=== PATIENT | male | born 1985 | race Two or more races ===

== ENCOUNTER 2017-09-01 19:44 | Emergency (ER) | payer OTHER ==
[2017-09-01] MEDS ORDERED: Ketorolac 60 MG/2 ML SDV IM ONE (21:29)
[2017-09-01] MEDS ORDERED: predniSONE 20 MG Tab PO ONE (21:29)
[2017-09-01] MEDS ORDERED: Amoxicillin/Clavulanate K 875-125 MG Tab PO ONE (21:29)
--- NOTE | 2017-09-01 21:35 | EDM.PDOC ---
ED HPI GENERAL MEDICAL PROBLEM - General Chief Complaint: Headache Stated Complaint: HEADACHE Time Seen by Provider: 09/01/17 20:30 Source of Information: Reports: Patient History Limitations: Reports: No Limitations - History of Present Illness INITIAL COMMENTS - FREE TEXT/NARRATIVE: Patient is a 31-year-old male who presents to the ED complaining of right sided headache encompassing the frontal/maxillary sinuses. Patient states MURCIA was gradual onset started 3 days and has progressively gotten worse. Described as a throbbing sensation with slight photophobia present. He has no history of migraines. States over the past 2 weeks he been experiencing increasing sinus congestion runny nose and sinus pressure. States he has a history of seasonal allergies and notes that symptoms have appeared to be getting worse. He complains of pain with palpation along the frontal and maxillary sinus. Denies any dental discomfort at this point. There is no vision changes. No nausea or vomiting. No focal neurological deficits. No nuchal rigidity. States one week ago he did feel feverish that has since resolved. Denies any ear pain, sore throat, postnasal drip, cough, chest pain, rash, or any additional complaints. Currently pain is rated 6 out of 10. He's been taking Tylenol and Aleve. Last took Tylenol at 1400 hrs. today. Of note patient was involved in a accident approximately one month ago when he was bucked off a horse. This caused a compression fracture, moderate compression fracture to his L1. He is currently in the lumbar sacral base. He is prescribed Tylenol with Codeine to which he has not been taking for the past 3 weeks. During this accident he did bump his head and had CT of the head obtained with no intracranial abnormalities. There was no skull fracture present. Since the accident he has had no issues with headaches. He denies any past medical history or other medications currently taking. Surgical history none. Smoking history none. Alcohol use rarely. Denies recreational drug use. PCP known. Headache Pain Score (Numeric/FACES): 7 - Related Data Allergies Allergy/AdvReac Type Severity Reaction Status Date / Time No Known Allergies Allergy Verified 09/01/17 20:10 Home Meds: Home Meds Amoxicillin/Potassium Clav [Augmentin 875-125 Tablet] 1 each PO BID #19 tablet 09/01/17 [Rx] Terbinafine HCl [Terbinafine] 250 mg PO DAILY 09/01/17 [History] ED ROS GENERAL - Review of Systems Review Of Systems: ROS reveals no pertinent complaints other than HPI. - Physical Exam Exam: See Below Exam Limited By: No Limitations General Appearance: Alert, WD/WN, No Apparent Distress Eye Exam: Bilateral Eye: EOMI, Normal Inspection, Nystagmus (none noted), PERRL Ears: Hearing Grossly Normal Nose: Normal Inspection Throat/Mouth: Normal Inspection, Normal Teeth, Normal Oropharynx, Normal Voice, No Airway Compromise Head Exam: Facial Tenderness (On the right frontal and maxillary sinus.) Neck: Normal Inspection, Supple, Non-Tender, Full Range of Motion. No: Lymphadenopathy (L), Lymphadenopathy (R) Respiratory/Chest: No Respiratory Distress, Lungs Clear, Normal Breath Sounds, No Accessory Muscle Use, Chest Non-Tender Cardiovascular: Normal Peripheral Pulses, Regular Rate, Rhythm, No Murmur GI/Abdominal: Normal Bowel Sounds, Soft, Non-Tender, No Organomegaly Neuro Exam (Abbreviated): Alert, Oriented, CN II-XII Intact, Normal Cognition, No Motor/Sensory Deficits, Other (No facial droop, slurred speech, tongue deviation, pronator drift, and or nystagmus. No weakness discrepancies to the upper/lower extremities. Cerebellar fx intact: finger to nose, rapid alternating movements. ) Back Exam: Other (Lumbosacral brace in place) Extremities: Normal Inspection, Normal Range of Motion, Non-Tender, No Pedal Edema, Normal Capillary Refill Psychiatric: Normal Affect, Normal Mood Skin Exam: Warm, Dry, Normal Color, No Rash Course - Vital Signs Last Recorded V/S: Last Vital Signs Temp 98.0 F 09/01/17 20:11 Pulse 88 09/01/17 20:11 Resp 16 09/01/17 20:11 BP 149/106 H 09/01/17 20:11 Pulse Ox 98 09/01/17 20:11 - Orders/Labs/Meds Meds: Medications Discontinued Medications Generic Name Dose Route Start Last Admin Trade Name Freq PRN Reason Stop Dose Admin Amoxicillin/Clavulanate Potassium 1 tab 09/01/17 21:29 09/01/17 21:40 Augmentin 875 Mg/125 Mg PO 09/01/17 21:30 1 tab ONETIME ONE Administration Ketorolac Tromethamine 60 mg 09/01/17 21:29 09/01/17 21:40 Toradol IM 09/01/17 21:30 60 mg ONETIME ONE Administration Prednisone 40 mg 09/01/17 21:29 09/01/17 21:40 Prednisone PO 09/01/17 21:30 40 mg ONETIME ONE Administration - Re-Assessments/Exams Free Text/Narrative Re-Assessment/Exam: Believe patient has sinusitis with symptoms persisting for the past 2 weeks that have been progressively getting worse. He has pain noted to the frontal and maxillary sinus with palpation. He has upper respiratory-like symptoms. I have opted to treat the patient with Toradol 60 mg IM, prednisone 40 mg by mouth , and Augmentin 1 tab by mouth. 09/01/17 22:46 Per nursing staff symptoms are improving. Patient is wishing to be discharged home. Discharge instructions as documented. Departure - Departure Time of Disposition: 21:38 Disposition: Home, Self-Care 01 Condition: Good Clinical Impression: Sinusitis, acute Qualifiers: Sinusitis location: unspecified location Recurrence: non-recurrent Qualified Code(s): J01.90 - Acute sinusitis, unspecified - Discharge Information Prescriptions: Amoxicillin/Potassium Clav [Augmentin 875-125 Tablet] 1 each PO BID #19 tablet Instructions: Sinusitis, Adult, [id number], Sinus Headache, [id number] Referrals: PCP,None [Primary Care Provider] - Forms: ED Department Discharge Additional Instructions: Take the full course of Augmentin as prescribed. May use Flonase 1 spray to each nare twice a day. Tylenol 650 mg every 6 hours and ibuprofen 600 mg every 6 hours in alternating fashion for pain. Take the ibuprofen with food. Push the fluids. Utilize nasal saline spray 1 spray to each nare every hour as needed while awake to reduce any nasal secretions. Suggest taking a [id number] probiotic while on the Augmentin to decrease any side effects. Please follow up with primary care provider at [facility] in [place] at conclusion of therapy to ensure resolution. Please return back to the ED if you develop any new or worsening symptoms.
== END 2017-09-01 22:53 | disposition home or self-care (01) ==
LOC: JD.ED 19:44
DX: J01.90 Acute sinusitis, unspecified (principal); Z79.899 Other long term (current) drug therapy
CPT/HCPCS: 96372; 99284; A9270; J1885